=== PATIENT | female | born 1955 | race Caucasian/White ===

== ENCOUNTER → 2020-07-28 14:19 | Outpatient (CLI) | payer BC, SELFPAY ==
--- NOTE | ~2020-07-28 | MMUS_ITS ---
EXAMINATION: MM diagnostic ragini BI w loraine, US breast RT limited HISTORY: Palpable right breast lump at the 12:00 location and upper right breast pain TECHNIQUE: Craniocaudal, mediolateral, and mediolateral oblique 3-D tomosynthesis images of the douglas ts were performed and synthetic 2-D images were generated. CAD analysis was submitted and interpreted . High resolution limited right breast ultrasound was performed. COMPARISON: 03/21/2017, 05/19/2015, 05/03/2014 BREAST PARENCHYMAL COMPOSITION: There are scattered areas of fibroglandular density. FINDINGS: MAMMOGRAPHIC FINDINGS: Right breast: No discrete mammographic correlate is identified for the reported right breast lump for right breast pain. There is no suspicious mass, calcification, or architectural distortion. Left breast: There is no evidence of suspicious mass, calcification, or architectural distortion to suggest malignancy. A stable asymmetry is present in the anterior third of the breast on the cranioca udal view. There has been no suspicious interval change. ULTRASOUND: There is a 6 mm x 2 mm oval, circumscribed, parallel, hypoechoic mass in the skin at the 2:00 locatio n corresponding to the palpable abnormality of concern which demonstrates a thin tract to the skin lino rface. No sonographic correlate is identified for the patient's right breast pain. IMPRESSION: 1. Sebaceous cyst of the right breast corresponding to the palpable abnormality of concern. No mammog raphic correlate for the patient's right breast pain, clinical follow-up is recommended. No mammograp hic evidence of malignancy in the left breast. 2. Recommend routine screening mammography in one year. BI-RADS Category 2: Benign finding(s). Reviewed, dictated and finalized at location A. IMPRESSION: 1. Sebaceous cyst of the right breast corresponding to the palpable abnormality of concern. No mammographic correlate for the patient's right breast pain, cli nical follow-up is recommended. No mammographic evidence of malignancy in the l eft breast. 2. Recommend routine screening mammography in one year. BI-RADS Category 2: Benign finding(s).
== END ==
PROVIDERS: PCP Student in an Organized Health Care Education/Training Program; Visit Provider Nurse Practitioner
DX: N64.59 Other signs and symptoms in breast (principal)
CPT/HCPCS: 76642; 77062; 77066; G0279

== ENCOUNTER → 2020-09-19 13:13 | Outpatient (CLI) | payer BC, SELFPAY ==
--- NOTE | ~2020-09-19 | DEXA_ITS ---
Bone Density Report Name: Lisa Boggs Age: 65 Sex: Female Ethnicity: White Date of : 1955 Indication: postmenopausal; screening for osteoporosis; hysterectomy; Referring Provider: Nina, Michael Study: Bone densitometry was performed. Exam Date: September 19, 2020 Accession number: [id number] Bone Density: Region BMD T-score Z-score Classification AP Spine (L1-L4) 0.871 -1.6 0.0 Osteopenia Femoral Neck (Left) 0.565 -2.6 -1.1 Osteoporosis Total Hip (Left) 0.775 -1.4 -0.2 Osteopenia Femoral Neck (Right) 0.594 -2.3 -0.9 Osteopenia Total Hip (Right) 0.725 -1.8 -0.7 Osteopenia Total Hip Mean 0.750 -1.6 -0.5 Osteopenia World Health Organization criteria for BMD impression classify patients as: Normal (T-score at or above -1.0), Osteopenia (T-score between -1.0 and -2.5), or Osteoporosis (T-score at or below -2.5). 10-year Fracture Risk: FRAX not reported because: Some T-score for Spine Total or Hip Total or Femoral Neck at or below -2.5 Clinical Information Provided by Patient: Smokes Has used the following medications: Vitamin D, Calcium Has the following medical conditions: Hysterectomy Patient maximum height was 62.25 Menopause Age: 57 No regular weight bearing exercise Drinks caffeinated beverages Onset of menses at age 15 Number of children 0 Impression: The patient has osteoporosis, based on the Left Femoral Neck T-score. The patient has risk factors, including: smoking. Discussion: INCREASED RISK OF FRACTURE. BONE DENSITY IS UNDESIRABLY LOW AT ONE OR MORE SKELETAL SITES, CONSISTENT WITH POSTMENOPAUSAL OSTEOPOROSIS. This patient's lowest T-score meets the World Health Organization's (WHO) criteria for osteoporosis at one or more sites (T-score -2.5 or below). In untreated patients, the risk of osteoporotic fracture increases approximately two-fold for each 1.0 SD decrease in T-score. Low bone density is not the only risk factor for fracture; also consider factors such as patient's age, frailty or poor health, risk of falling, risk of injury, previous osteoporotic fracture, family history of osteoporosis, cigarette smoking, low body weight, etc. Not everyone with low bone mineral density has osteoporosis; osteomalacia and other metabolic bone disorders should also be considered. Patients who have osteoporosis should be evaluated for specific diseases and conditions (secondary causes) that may cause or contribute to bone loss. The [place] [employer] (AACE) and National Osteoporosis Foundation (NOF) recommend pharmacologic intervention for all postmenopausal women whose T-score is in this range. The patient should follow a healthful lifestyle (good nutrition with adequate calcium and vitamin D, and appropriate weight-bearing exercise). Follow-Up: Consider a edyta
== END ==
PROVIDERS: PCP Student in an Organized Health Care Education/Training Program; Visit Provider Student in an Organized Health Care Education/Training Program
DX: Z78.0 Asymptomatic menopausal state (principal); M85.852 Other specified disorders of bone density and structure, left thigh; M85.851 Other specified disorders of bone density and structure, right thigh
CPT/HCPCS: 77080

== ENCOUNTER → 2021-09-17 10:37 | Outpatient (CLI) | payer BC, SELFPAY ==
--- NOTE | ~2021-09-17 | MM_ITS ---
EXAMINATION: MM screening ragini BI w loraine HISTORY: Screening mammogram TECHNIQUE: Craniocaudal and mediolateral oblique 3-D tomosynthesis images were obtained and synthetic 2-D images were generated. CAD analysis was submitted and interpreted. COMPARISON: 07/28/2020 bilateral diagnostic mammogram and limited right breast ultrasound 03/21/2017 bilateral diagnostic mammography and complete left breast ultrasound 05/19/2015 bilateral screening mammogram BREAST PARENCHYMAL COMPOSITION: There are scattered areas of fibroglandular density. FINDINGS: There is a biopsy marker on the right; history of benign right breast biopsy. There is no evidence of suspicious mass, calcification, or architectural distortion to suggest malig mary in either breast. There has been no suspicious interval change. IMPRESSION: 1. No mammographic evidence of malignancy. 2. Recommend routine screening mammography in one year. BI-RADS Category 1: Negative Reviewed, dictated and finalized at location A. TECHNICIAN
== END ==
PROVIDERS: PCP Student in an Organized Health Care Education/Training Program; Visit Provider Nurse Practitioner
DX: Z12.31 Encounter for screening mammogram for malignant neoplasm of breast (principal)
CPT/HCPCS: 77063; 77067